=== PATIENT | female | born 1975 | race Caucasian/White ===

== ENCOUNTER 2019-09-20 17:19 | Outpatient (REF) | payer OTHER, SELFPAY ==
[2019-09-24 13:35] LABS: IgA 311 mg/dL (85-499); Tissue Transglutaminase IgA <1.2 U/mL (<4.0)
== END 2019-09-20 17:39 ==
LOC: NCHCN 17:19
PROVIDERS: PCP Family Medicine; Visit Provider Nurse Practitioner Family
DX: K59.00 Constipation, unspecified (principal); R14.0 Abdominal distension (gaseous)
CPT/HCPCS: 82784; 83516

== ENCOUNTER 2020-07-07 21:02 | Outpatient (REF) | payer OTHER, SELFPAY ==
[2020-07-16 18:00] LABS: SARS-CoV-2 RNA Undetected (Undetected); SARS-CoV-2 Specimen Source Nasal/Nares
== END 2020-07-07 21:22 ==
LOC: NCHCN 21:02
PROVIDERS: PCP Family Medicine; Visit Provider Family Medicine
DX: R09.81 Nasal congestion (principal)
CPT/HCPCS: U0003

== ENCOUNTER 2021-06-17 22:53 | Outpatient (REF) | payer OTHER, SELFPAY ==
[2021-06-17 22:07] LABS: Abs Immature Grans 0.04 10^3/uL (0.0-0.06); Absolute Basophil Count 0.05 10^3/uL (0.0-0.2); Absolute Eosinophil Count 0.03 10^3/uL (0.0-0.7); Absolute Lymphocyte Count 1.44 10^3/uL (1.2-3.4); Absolute Neutrophil Count 10.03 10^3/uL (1.2-6.7); Basophils % 0.4; Eosinophils % 0.2; HCT 40.3 % (36.0-46.0); HGB 13.2 g/dL (11.2-15.7); Immature Grans % 0.3; Lymphocytes % 11.2; MCH 30.8 pg (27.0-33.0); MCHC 32.8 % (32.0-36.0); MCV 94.2 fL (80-95); MPV 10.4 fL (8.0-11.0); Monocytes % 10.1; Neutrophils % 77.8; Nucleated RBC 0 %; Platelet Count 324 10^3/uL (130-400); RBC 4.28 10^6/uL (3.93-5.22); RDW 11.9 % (11.7-14.6); RDW-SD 41.4 fL; WBC 12.89 10^3/uL (4.4-10.8)
[2021-06-17 22:12] LABS: BUN 7 mg/dL (7-18); CREATININE 0.8 mg/dL (0.55-1.02); Calcium 8.9 mg/dL (8.5-10.1); Chloride 102 mmol/L (98-107); Glucose 89 mg/dL (74-106); Potassium 4.2 mmol/L (3.5-5.1); Sodium 138 mmol/L (136-145)
[2021-06-19 09:53] LABS: Lyme Ab w Rflx to Lyme Confirm Positive (Negative)
[2021-06-19 13:12] LABS: ALT 25 U/L (14-59); AST 19 U/L (15-37)
[2021-06-19 14:42] LABS: Lyme IgG Ab Negative (Negative); Lyme IgM Ab Positive (Negative)
[2021-06-20 02:36] LABS: Anaplasma phagocytophilum Negative (Negative); B. miyamotoi PCR Negative (Negative); Babesia divergens/MO-1 Negative (Negative); Babesia duncani Negative (Negative); Babesia microti Negative (Negative); Ehrlichia chaffeensis Negative (Negative); Ehrlichia ewingii/canis Negative (Negative); Ehrlichia muris eauclairensis Negative (Negative)
[2021-06-30 16:57] LABS: Mono Screening Negative (Negative)
== END 2021-06-17 22:54 | disposition home or self-care (01) ==
LOC: NCHCN 22:53
PROVIDERS: PCP Family Medicine; Visit Provider Nurse Practitioner Family
DX: R59.1 Generalized enlarged lymph nodes (principal)
CPT/HCPCS: 80048; 86617; 87798; 84450; 84460; 85025; 86308; 86618

== ENCOUNTER 2022-02-03 20:18 | Outpatient (REF) | payer OTHER, SELFPAY ==
--- NOTE | 2022-02-03 17:00 | PAPFT_PTH ---
PATIENT: Dulce Leyva LOC: [facility]#:[id number] AGE/SX: 47/F ROOM: RE02/03/[address]: Tawanna Dumont : 1975 BED: DIS: 02/03/2022 SPEC #: [id number] RECD: 02/04/22 12:37 STATUS: HERLINDA REDarshana #: [id number] CHARLI: 02/03/22 17:[address]: Tawanna Dumont DEPT: [facility] Cytology RECD BY: Britta Tovar ENTERED: 02/04/22 12:38 SP TYPE: PAPFT OTHR DR: Lyubov Bolton Tissues: 1 - CX/ENDOCX FOR PAP SMEARS Procedures: PAP THIN PREP/[facility] Screening HPV DNA PROBE Comments: [id number] (CHLAMYDIA/GC)
[2022-02-05 15:18] LABS: Chlamydia Result Negative (Negative); GC Result Negative (Negative)
== END 2022-02-03 20:19 | disposition home or self-care (01) ==
LOC: NCHCN 20:18
PROVIDERS: PCP Family Medicine; Visit Provider Nurse Practitioner Family
DX: Z11.3 Encounter for screening for infections with a predominantly sexual mode of transmission (principal); Z12.4 Encounter for screening for malignant neoplasm of cervix; Z11.51 Encounter for screening for human papillomavirus (HPV); Z00.00 Encounter for general adult medical examination without abnormal findings
CPT/HCPCS: 87491; 87591; 88142; 87624

== ENCOUNTER 2024-03-05 17:14 | Outpatient (REF) | payer BC, SELFPAY ==
[2024-03-05 22:21] LABS: ALT 51 U/L (14-59); AST 33 U/L (15-37); Albumin 3.9 g/dL (3.4-5.0); Alkaline Phosphatase 68 U/L (46-116); BUN 7 mg/dL (7-18); Bilirubin, Total 0.48 mg/dL (0.2-1.0); CREATININE 0.8 mg/dL (0.55-1.02); Calculated LDL 103 mg/dL (<100); Chloride 101 mmol/L (98-107); Cholesterol 171 mg/dL (<200); Estimated GFR 90.27 (mL/min/1.73m2); Glucose 98 mg/dL (74-106); HDL Cholesterol 41 mg/dL (40-60); Sodium 139 mmol/L (136-145); Total Protein 8.1 g/dL (6.4-8.2); Triglyceride 138 mg/dL (<150)
[2024-03-05 22:24] LABS: Calcium 9.1 mg/dL (8.5-10.1)
[2024-03-06 19:30] LABS: HBs Antibody, Quant <3.1 mIU/mL (See Note); Hepatitis B Surface Ab Negative (See Note)
[2024-03-06 20:21] LABS: Hepatitis C Ab w Rflx HCV PCR Negative (Negative)
[2024-03-06 20:29] LABS: HIV-1/2 Ag & Ab Screen Negative (Negative)
[2024-03-07 10:29] LABS: Syphilis Serology (RPR) Negative (Negative)
[2024-03-07 10:51] LABS: Lyme Ab w Rflx to Lyme Confirm Negative (Negative)
[2024-03-07 13:12] LABS: Chlamydia Result Negative (Negative); GC Result Negative (Negative)
[2024-03-09 12:59] LABS: Anaplasma phagocytophilum Negative (Negative); B. miyamotoi PCR Negative (Negative); Babesia divergens/MO-1 Negative (Negative); Babesia duncani Negative (Negative); Babesia microti Negative (Negative); Ehrlichia chaffeensis Negative (Negative); Ehrlichia ewingii/canis Negative (Negative); Ehrlichia muris eauclairensis Negative (Negative)
== END 2024-03-05 17:15 | disposition home or self-care (01) ==
LOC: NCHCN 17:14
PROVIDERS: PCP Family Medicine; Visit Provider Nurse Practitioner Family
DX: Z00.00 Encounter for general adult medical examination without abnormal findings (principal); Z13.220 Encounter for screening for lipoid disorders; Z11.3 Encounter for screening for infections with a predominantly sexual mode of transmission; Z11.4 Encounter for screening for human immunodeficiency virus [HIV]; Z11.59 Encounter for screening for other viral diseases; Z11.8 Encounter for screening for other infectious and parasitic diseases; Z13.228 Encounter for screening for other metabolic disorders; Z01.84 Encounter for antibody response examination
CPT/HCPCS: 80053; 80061; 86706; 86803; 87389; 87491; 87591; 87798; 86592; 86618

== ENCOUNTER 2024-09-11 16:59 | Outpatient (REF) | payer BC, SELFPAY ==
[2024-09-12 19:46] LABS: HBs Antibody, Quant <3.1 mIU/mL (See Note); Hep B Surface Ab Negative (See Note); Hepatitis B Core Antibody Negative (Negative); Hepatitis B Surface Antigen Negative (Negative)
[2024-09-12 20:06] LABS: HIV-1/2 Ag & Ab Screen Negative (Negative)
[2024-09-12 20:09] LABS: Hepatitis C Ab w Rflx HCV PCR Negative (Negative)
[2024-09-13 10:40] LABS: Syphilis Serology (RPR) Negative (Negative)
[2024-09-13 12:10] LABS: Chlamydia Result Negative (Negative); GC Result Negative (Negative)
[2024-09-13 17:41] LABS: Hepatitis Be Antigen Negative (Negative)
== END 2024-09-11 17:00 | disposition home or self-care (01) ==
LOC: NCHCN 16:59
PROVIDERS: PCP Family Medicine; Visit Provider Nurse Practitioner Family
DX: Z11.3 Encounter for screening for infections with a predominantly sexual mode of transmission (principal)
CPT/HCPCS: 86704; 86706; 86803; 87340; 87389; 87491; 87591; 86592; 87350

== ENCOUNTER 2024-11-13 14:40 | Outpatient (REF) | payer BC, SELFPAY | END 2024-11-13 14:41 | disposition home or self-care (01) | LOC: NCHCN 14:40 | PROVIDERS: PCP Family Medicine; Visit Provider Family Medicine | DX: R39.9 Unspecified symptoms and signs involving the genitourinary system (principal) | CPT/HCPCS: 87077; 87086; 87186 ==